=== PATIENT | female | born 1990 ===

== ENCOUNTER 2020-08-21 21:10 | Outpatient (REF) | payer SELFPAY ==
[2020-08-25 22:15] LABS: COVID-19 RT-PCR Result NEGATIVE (Negative)
== END 2020-08-21 21:30 ==
LOC: NCHCN 21:10
PROVIDERS: PCP Nurse Practitioner Family; Visit Provider Nurse Practitioner Family
DX: Z20.828 Contact with and (suspected) exposure to other viral communicable diseases (principal); J02.9 Acute pharyngitis, unspecified
CPT/HCPCS: U0003

== ENCOUNTER 2020-08-26 15:56 | Outpatient (REF) | payer SELFPAY ==
[2020-08-28 14:48] LABS: COVID-19 RT-PCR UVMMC Result Negative (Negative)
== END 2020-08-26 16:16 ==
LOC: NCHCN 15:56
PROVIDERS: PCP Nurse Practitioner Family; Visit Provider Nurse Practitioner Family
DX: J06.9 Acute upper respiratory infection, unspecified (principal); Z20.828 Contact with and (suspected) exposure to other viral communicable diseases
CPT/HCPCS: U0003